=== PATIENT | male | born 1990 | race Caucasian/White ===

== ENCOUNTER → 2020-05-16 | Outpatient (CLI) | payer MEDICAID ==
[~2020-05-16] MED LIST: methadone PO
[2020-05-16 13:47] LABS: ANION GAP 4 mmol/L (5-15); CALCIUM 8.9 mg/dL (8.5-10.1); CHLORIDE 107 mmol/L (98-107); CREATININE 1.07 mg/dL (0.7-1.3); INTERNATIONAL NORMALIZED RATIO 0.99 (0.93-1.1); PROTHROMBIN TIME 10.5 Seconds (9.6-11.5)
[2020-05-16 13:55] LABS: BASOPHILS % (AUTO) 1 % (0-1); EOSINOPHILS % (AUTO) 12 % (1-7); LYMPHOCYTES % (AUTO) 28 % (22-44); MEAN CORPUSCULAR HEMOGLOBIN 29.3 pg (27.5-34.5); MEAN CORPUSCULAR HGB CONC 33.7 g/dL (33.2-36.2); MEAN PLATELET VOLUME 8.6 fL (7.4-10.4); MONOCYTES % (AUTO) 7 % (2-9); NEUTROPHILS % (AUTO) 52 % (42-75); PLATELET COUNT 259 x10^3/uL (130-400); RED BLOOD COUNT 4.91 x10^6/uL (4.38-5.82); RED CELL DISTRIBUTION WIDTH 13.8 % (9.4-14.8)
[2020-05-16 13:56] LABS: MICROSCOPIC AUTO
[2020-05-16 14:30] LABS: MD SCAN
== END | disposition home or self-care (01) ==
LOC: STAR 12:32
PROVIDERS: ATTEND Urology
DX: Z01.812 Encounter for preprocedural laboratory examination (principal); Z20.828 Contact with and (suspected) exposure to other viral communicable diseases; N20.0 Calculus of kidney
CPT/HCPCS: 36415; 80048; 81001; 85025; 85610; 87086; 87635

== ENCOUNTER 2020-05-22 05:39 | Day surgery (SDC) | payer MEDICAID ==
[~2020-05-22] VITALS: Ht 190.5 cm; Wt 74.5 kg
[2020-05-22] MEDS ORDERED: CHLORHEXIDINE 15 ML UDC MM ONE ×2 (06:30→08:00)
[2020-05-22] MEDS ORDERED: CHLORHEXIDINE 15 ML UDC ONE (06:34)
[2020-05-22] MEDS: LACTATED RINGERS 1,000 ML IV SCH ×2 (07:06→07:32)
[2020-05-22] MEDS ORDERED: MIDAZOLAM 1 MG/ML, 2ML ONE (07:18)
[2020-05-22] MEDS ORDERED: KETOROLAC 30 MG/1 ML ONE (09:11)
[2020-05-22] MEDS ORDERED: FENTANYL PF 100 MCG/2ML ONE (09:19)
[2020-05-22] MEDS: FENTANYL PF 100 MCG/2ML IV PRN ×2 (09:21→09:26)
[2020-05-22] MEDS ORDERED: DIAZEPAM 5 MG/ML, 2ML IV PRN ×2 (09:30)
[2020-05-22] MEDS ORDERED: OXYcodone 5 MG/5 ML ORAL.SOL UDC PO PRN (09:30)
[2020-05-22] MEDS ORDERED: PROMETHAZINE 25 MG/ML, 1ML IV PRN (09:30)
[2020-05-22] MEDS ORDERED: LABETALOL 5MG/ML, 20ML IV PRN (09:30)
[2020-05-22] MEDS ORDERED: METOCLOPRAMIDE 5 MG/ML, 2ML IV PRN (09:30)
[2020-05-22] MEDS ORDERED: KETOROLAC 30 MG/1 ML IV PRN (09:30)
[2020-05-22] MEDS ORDERED: MEPERIDINE/PF 25MG/0.5ML IVPush PRN (09:30)
[2020-05-22] MEDS ORDERED: hydrALAzine 20 MG/ML, 1ML IV PRN (09:30)
[2020-05-22] MEDS ORDERED: HYDROmorphone 1 MG/ML, 1ML INJ IV PRN (09:30)
[2020-05-22] MEDS ORDERED: ALBUTEROL SULFATE 2.5 MG/3 ML NPPB PRN (09:30)
[2020-05-22] MEDS ORDERED: ONDANSETRON 2MG/ML, 2ML IVPush PRN (09:30)
[2020-05-22] MEDS ORDERED: OXYcodone 5 MG/5 ML ORAL.SOL UDC ONE (09:59)
[2020-05-22] MEDS ORDERED: ROCURONIUM 10MG/ML,5ML ONE (11:26)
[2020-05-22] MEDS ORDERED: ONDANSETRON 2MG/ML, 2ML ONE (11:26)
[2020-05-22] MEDS ORDERED: CEFAZOLIN 1,000 MG ONE (11:26)
[2020-05-22] MEDS ORDERED: SUCCINYLCHOLINE 20 MG/ML, 10ML ONE (11:26)
[2020-05-22] MEDS ORDERED: PROPOFOL 10 MG/ML, 20ML ONE (11:26)
[2020-05-22] MEDS ORDERED: DEXAMETHASONE 4 MG/ML, 1ML ONE (11:26)
== END 2020-05-22 11:00 | disposition home or self-care (01) ==
LOC: OUT 05:39
PROVIDERS: ATTEND Urology
DX: N20.0 Calculus of kidney (principal); F17.210 Nicotine dependence, cigarettes, uncomplicated; Z72.89 Other problems related to lifestyle; Z83.3 Family history of diabetes mellitus
CPT/HCPCS: 50590; J0330; J0690; J1100; J1885; J2250; J2405; J2704; J3010; J7120

== ENCOUNTER 2020-11-15 19:56 | Emergency (ER) | payer MEDICAID ==
[~2020-11-15] VITALS: Ht 190.5 cm; Wt 85.4 kg
[2020-11-15] MEDS ORDERED: ONDANSETRON ODT 4 MG ONE (20:57)
[2020-11-15] MEDS ORDERED: ONDANSETRON ODT 4 MG PO ONE (21:00)
--- NOTE | 2020-11-15 21:03 | NUR ---
CC OF NAUSEA SINCE THIS AM AROUND 11 AM. PT STATES HE TOOK 150MG METHADONE AND QUICKLY VOMITED IT UP AND STATES "SINCE THEN I HAVENT BEEN ABLE TO KEEP ANYTHING DOWN". STATES HE DID HAVE SOME DIARRHEA EARLIER TODAY WELL. PT REQUESTING NASUEA MEDS WHILE WAITING TO SEE PROVIDER. NAIF ALCANTAR AWARE AND ORDERS PLACED.
[2020-11-15] MEDS ORDERED: SODIUM CHLORIDE 0.9% 1,000ML IVBOLUS ONE (21:30)
[2020-11-15 21:49] LABS: BASOPHILS % (AUTO) 0 % (0-1); EOSINOPHILS % (AUTO) 4 % (1-7); LYMPHOCYTES % (AUTO) 12 % (22-44); MD NO; MEAN CORPUSCULAR HEMOGLOBIN 31.5 pg (27.5-34.5); MEAN CORPUSCULAR HGB CONC 34.4 g/dL (33.2-36.2); MEAN PLATELET VOLUME 8.4 fL (7.4-10.4); MONOCYTES % (AUTO) 5 % (2-9); NEUTROPHILS % (AUTO) 80 % (42-75); PLATELET COUNT 240 x10^3/uL (130-400); RED CELL DISTRIBUTION WIDTH 13.4 % (9.4-14.8)
[2020-11-15 21:59] LABS: ALBUMIN 3.5 g/dL (3.4-5.0); ANION GAP 7 mmol/L (5-15); CALCIUM 8.8 mg/dL (8.5-10.1); CHLORIDE 104 mmol/L (98-107)
[2020-11-15 22:02] LABS: ALANINE AMINOTRANSFERASE 43 U/L (12-78); ALKALINE PHOSPHATASE 93 U/L (45-117); BILIRUBIN,TOTAL 0.5 mg/dL (0.2-1.0); CREATININE 0.77 mg/dL (0.7-1.3)
[2020-11-15 22:28] VITALS: BP 124/82
== END 2020-11-15 22:31 | disposition home or self-care (01) ==
LOC: ED 22:28
DX: A09 Infectious gastroenteritis and colitis, unspecified (principal); R11.2 Nausea with vomiting, unspecified; F17.200 Nicotine dependence, unspecified, uncomplicated
CPT/HCPCS: 36415; 80053; 83690; 85025; 96360; 99283; J7030; Q0162